=== PATIENT | female | born 1945 | race Caucasian/White ===

== ENCOUNTER → 2018-02-07 | Outpatient (CLI) | payer MEDICARE ==
[~2018-02-07] MED LIST: ALPR1TAB2 PO; ATOR20TA PO; DICL75TA PO; DORZ10DR21 OP; GABA600T2 PO; GLIM1TAB2 PO; LATA2.5D3 OP; LISI10TA2 PO; METF10007 PO; PANT20TA3 PO; ROPI1TAB PO; SITA100T PO; TRAM50TA PO
--- NOTE | 2018-02-07 15:58 | KCIC ---
EXAM: Lumbar spine, 5 views. HISTORY: Pain. COMPARISON: None. FINDINGS: Frontal, lateral, bilateral oblique and coned sacral views of the lumbar spine are obtained. There is grade 1 anterolisthesis of L4 and L5, measuring 4 mm. There is grade 1 anterolisthesis of L3 on L4, measuring 3 mm. There is a mild chronic appearing compression fracture at L1. The remainder of the vertebral milner are normal in height. There is endplate remodeling at multiple levels. There is disc space narrowing predominantly at L3-L4. There is facet arthropathy predominantly at the mid lower lumbar levels. IMPRESSION: 1. 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 2. Mild grade 1 anterolisthesis of L4 and L5 and and L3 on L4. 3. Mild chronic appearing L1 compression fracture. Electronically signed by: Jessica Blackmon MD (02/07/2018 3:55 PM) [facility]
== END | disposition home or self-care (01) ==
LOC: KCIC 15:16
PROVIDERS: ATTEND Family Medicine
DX: M54.16 Radiculopathy, lumbar region (principal); M48.56XA Collapsed vertebra, not elsewhere classified, lumbar region, initial encounter for fracture; M47.895 Other spondylosis, thoracolumbar region
CPT/HCPCS: 72110

== ENCOUNTER → 2020-08-04 | Outpatient (CLI) | payer MEDICARE ==
[~2020-08-04] MED LIST changes: -GABA600T2 PO; +GABA600T7 PO; -GLIM1TAB2 PO; +GLIM1TAB7 PO; +LISI10TA16 PO; -LISI10TA2 PO
--- NOTE | 2020-08-10 15:20 | RAD ---
DATE: 08/04/2020 12:14 PM EXAM: MAMMO ALISON SCREENING BILATERAL HISTORY: Screening COMPARISON: None. This is a baseline Bilateral CC and MLO views of the breasts were performed. Bilateral breast tomosynthesis was performed in CC and MLO projections. This study was interpreted with the benefit of Computerized Aided Detection (CAD). FINDINGS: Breast Density: FATTY The Breast Parenchyma is primarily fatty replaced. Breast parenchyma level density A. No suspicious masses, microcalcifications or architectural distortion is present to suggest malignancy in either breast. The visualized axillae are unremarkable. IMPRESSION: No mammographic evidence of malignancy. BI-RADS CATEGORY: 1 NEGATIVE RECOMMENDED FOLLOW-UP: 12M 12 MONTH FOLLOW-UP Annual screening mammography is recommended, unless clinically indicated sooner based on symptoms or change in physical exam. PQRS compliance statement: Patient information was entered into a reminder system with a target due date for the next mammogram. Mammography is a sensitive method for finding small breast cancers, but it does not detect them all and is not a substitute for careful clinical examination. A negative mammogram does not negate a clinically suspicious finding and should not result in delay in biopsying a clinically suspicious abnormality. "Our facility is accredited by the [employer] Mammography Program."
== END ==
LOC: MAMMO 12:11
PROVIDERS: ATTEND Family Medicine
DX: Z12.31 Encounter for screening mammogram for malignant neoplasm of breast (principal)
CPT/HCPCS: 77063; 77067